=== PATIENT | male | born 2000 ===

== ENCOUNTER 2019-10-14 14:13 | Emergency (ER) | payer OTHER, SELFPAY ==
[2019-10-14 14:16] VITALS: BP 130/68; PULSE 63; RESP 16; TEMP 37; O2SAT 100
[2019-10-14 14:24] VITALS: BP 116/63; PULSE 66; RESP 16; O2SAT 97
--- NOTE | 2019-10-14 14:52 | ED.GENADULT ---
HPI - General Adult General Chief complaint: Head Injury <Malvin Pierson PA-C - Last Filed: 10/14/19 15:38> Stated complaint: head injury <TOMMIE Krause Last Filed: 10/14/19 15:38> Time Seen by Provider: 10/14/19 14:18 <TOMMIE Krause Last Filed: 10/14/19 15:38> Source: patient and family <Malvin Pierson PA-C - Last Filed: 10/14/19 15:38> Mode of arrival: ambulatory <TOMMIE Krause Last Filed: 10/14/19 15:38> Limitations: no limitations <Malvin Pierson PA-C - Last Filed: 10/14/19 15:38> History of Present Illness HPI narrative: Patient is a 18-year-old male who presents with head injury was working at [employer] was up on a ladder when shelving fell down striking him in the parietal scalp notes that it fell about 10 feet denies any loss of consciousness syncope notes mild to moderate headache denies any lightheadedness dizziness nausea and vomiting presents per private vehicle in no distress resting comfortably in the room <Malvin Pierson PA-C - Last Filed: 10/14/19 15:38> Related Data Home medications: Home Medications Medication Instructions Recorded Confirmed No Home Medications 10/14/19 10/14/19 <Malvin Pierson PA-C - Last Filed: 10/14/19 15:38> Allergies/adverse reactions: Allergies Allergy/AdvReac Type Severity Reaction Status Date / Time No Known Allergies Allergy Verified 10/14/19 14:30 <Malvin Pierson PA-C - Last Filed: 10/14/19 15:38> Review of Systems Review of Systems: All systems reviewed & are unremarkable except as noted in HPI and below <Malvin Pierson PA-C - Last Filed: 10/14/19 15:38> PMFSH Social History Social History: Social History Smoking status: Never smoker Alcohol intake: never <TOMMIE Krause Last Filed: 10/14/19 15:38> Exam Narrative: Exam Narrative: GENERAL: Well-appearing, well-nourished, and in no acute distress. HEAD: Normocephalic, small superficial laceration of the parietal scalp measuring 2 cm EYES: PERRLA and EOMI. ENT: Nares clear, no rhinorrhea or epistaxis. Mucous membranes moist. Oropharynx without tonsillar hypertrophy exudate or other lesions. NECK: Supple. No adenopathy or masses. CHEST: Clear to auscultation. No respiratory distress. No wheezes rales or rhonchi HEART: Regular rate and rhythm. No murmur heard. EXTREMITIES: Normal range of motion. No edema. No cervical spine tenderness to palpation SKIN: Warm, dry, no rash. NEURO: No focal deficits. Alert and oriented x3. Cranial nerves II through XII grossly. Normal gait and speech PSYCH: Normal mood and affect. <TOMMIE Krause Last Filed: 10/14/19 15:38> Course Course Emergency Course: Patient in the room in no distress aware of case findings treatment plan and diagnosis agreeing to follow-up as directed <TOMMIE Krause Last Filed: 10/14/19 15:38> Vital Signs Vital signs: Vital Signs Temperature 37.0 C 10/14/19 14:16 Pulse Rate 63 10/14/19 14:16 Respiratory Rate 16 10/14/19 14:16 Blood Pressure 130/68 10/14/19 14:16 Pulse Oximetry 100 10/14/19 14:16 Temperature 37.0 C 10/14/19 14:16 Pulse Rate 66 10/14/19 14:24 Respiratory Rate 16 10/14/19 14:24 Blood Pressure 116/63 10/14/19 14:24 Pulse Oximetry 97 10/14/19 14:24 <TOMMIE Krause Last Filed: 10/14/19 15:38> Vital Signs Temperature 37.0 C 10/14/19 14:16 Pulse Rate 63 10/14/19 14:16 Respiratory Rate 16 10/14/19 14:16 Blood Pressure 130/68 10/14/19 14:16 Pulse Oximetry 100 10/14/19 14:16 Temperature 37.0 C 10/14/19 14:16 Pulse Rate 66 10/14/19 14:24 Respiratory Rate 16 10/14/19 14:24 Blood Pressure 116/63 10/14/19 14:24 Pulse Oximetry 97 10/14/19 14:24 <Dolores Bowling MD - Last Filed: 10/14/19 18:12> Procedures Laceration Lacera
[2019-10-14] MEDS: ACETAMINOPHEN 325 MG TABLET 650 MG PO (14:57)
== END 2019-10-14 15:54 | disposition home or self-care (01) ==
PROVIDERS: Emergency Provider Emergency Medicine
DX: S01.01XA Laceration without foreign body of scalp, initial encounter (principal); W20.8XXA Other cause of strike by thrown, projected or falling object, initial encounter
CPT/HCPCS: 12001; 99283; A9270